=== PATIENT | male | born 1985 | race Caucasian/White ===

== ENCOUNTER 2023-05-06 04:39 | Day surgery (SDC) | payer OTHER ==
[2023-05-01 14:21] VITALS: BMI 26.6
[2023-05-06 11:15] VITALS: BP 99/61; PULSE 50; RESP 14; TEMP 97.3
== END 2023-05-06 11:05 | disposition home or self-care (01) ==
LOC: JASU-ENDO 04:39
PROVIDERS: ATTEND Internal Medicine Gastroenterology
PROC: 0D9L8ZX Drainage of Transverse Colon, Via Natural or Artificial Opening Endoscopic, Diagnostic (ICD-10-PCS; 2023-05-06)
PROC: 0D9M8ZX Drainage of Descending Colon, Via Natural or Artificial Opening Endoscopic, Diagnostic (ICD-10-PCS; 2023-05-06)
PROC: 0D9H8ZX Drainage of Cecum, Via Natural or Artificial Opening Endoscopic, Diagnostic (ICD-10-PCS; 2023-05-06)
PROC: 0D9K8ZX Drainage of Ascending Colon, Via Natural or Artificial Opening Endoscopic, Diagnostic (ICD-10-PCS; principal; 2023-05-06 10:00)
DX: K64.8 Other hemorrhoids (principal); R19.7 Diarrhea, unspecified
CPT/HCPCS: 88305-TC